=== PATIENT | female | born 1935 | race Hispanic/Latino ===

== ENCOUNTER 2021-08-31 16:06 | Emergency (ER) | payer MEDICARE ==
[~2021-08-31] VITALS: Ht 160 cm; Wt 125.2 kg
[2021-08-31 16:55] LABS: BASOPHILS % (AUTO) 0.1 % (0.0-5.0); EOSINOPHILS % (AUTO) 0.4 % (0.0-8.0); HEMATOCRIT 38.1 % (36-48); LYMPHOCYTES % (AUTO) 13.5 % (21.0-51.0); MEAN CORPUSCULAR HEMOGLOBIN 32.1 pg (27.0-33.0); MEAN CORPUSCULAR VOLUME 100.3 fL (79-99); MONOCYTES % (AUTO) 5.1 % (3.0-13.0); NEUTROPHILS % (AUTO) 80.2 % (40.0-77.0); PLATELET COUNT (AUTO) 151 K/uL (130-400); RED CELL DISTRIBUTION WIDTH 14.2 % (11.0-15.5); WHITE BLOOD COUNT (AUTO) 7.5 K/uL (4.8-10.8)
[2021-08-31] MEDS ORDERED: BENZONATATE 100 MG CAPSULE PO SCH (17:00)
[2021-08-31] MEDS ORDERED: GUAIFENESIN-DM 200/20 MG 10 ML PO ONE (17:00)
[2021-08-31 17:05] LABS: CREATININE 0.8 mg/dL (0.5-1.5); POTASSIUM 3.8 mmol/L (3.5-5.1)
[2021-08-31 17:11] LABS: ALBUMIN 2.9 g/dL (3.5-5.0); BILIRUBIN,TOTAL 0.6 mg/dL (0.2-1.0); TOTAL PROTEIN, SERUM 6.4 g/dL (6.0-8.3)
[2021-08-31 18:40] VITALS: BP 146/86
[2021-08-31] MEDS ORDERED: LEVO750T46 PO (18:49)
[2021-08-31] MEDS ORDERED: BENZ-39 PO (18:49)
[2021-08-31] MEDS ORDERED: FLUT9.9S NS (18:49)
[2021-08-31] MEDS ORDERED: GUAI5SYR PO (18:49)
== END 2021-08-31 19:01 | disposition home or self-care (01) ==
LOC: EDH 16:06
DX: J45.909 Unspecified asthma, uncomplicated (principal); Z20.822 Contact with and (suspected) exposure to COVID-19; E03.9 Hypothyroidism, unspecified; I10 Essential (primary) hypertension; M19.90 Unspecified osteoarthritis, unspecified site; Z90.49 Acquired absence of other specified parts of digestive tract; Z90.710 Acquired absence of both cervix and uterus; Z96.653 Presence of artificial knee joint, bilateral
CPT/HCPCS: 36415; 71046; 80053; 85025; 87635; 87804 ×2; 87880; 99284; C9803

== ENCOUNTER → 2022-03-29 | Outpatient (CLI) | payer MEDICARE ==
[~2022-03-29] MED LIST: BENZ-39 PO; FLUT9.9S NS; GUAI5SYR PO; LEVO750T46 PO
== END | disposition home or self-care (01) ==
LOC: RAH 13:35
PROVIDERS: ATTEND Family Medicine
DX: M47.812 Spondylosis without myelopathy or radiculopathy, cervical region (principal); M50.322 Other cervical disc degeneration at C5-C6 level
CPT/HCPCS: 72141

== ENCOUNTER → 2022-06-20 | Outpatient (CLI) | payer MEDICARE ==
[~2022-06-20] MED LIST changes: -LEVO750T46 PO; +LEVO750T68 PO
== END | disposition home or self-care (01) ==
LOC: SHCH 12:38
PROVIDERS: ATTEND Internal Medicine Cardiovascular Disease
DX: I87.2 Venous insufficiency (chronic) (peripheral) (principal)
CPT/HCPCS: 93970

== ENCOUNTER → 2023-09-23 | Outpatient (CLI) | payer MEDICARE | END | disposition home or self-care (01) | LOC: SHCH 13:29 | PROVIDERS: ATTEND Internal Medicine Cardiovascular Disease | DX: I87.2 Venous insufficiency (chronic) (peripheral) (principal); I82.412 Acute embolism and thrombosis of left femoral vein; I87.1 Compression of vein | CPT/HCPCS: 93970 ==